=== PATIENT | male | born 1955 | race Caucasian/White ===

== ENCOUNTER 2019-04-25 11:52 | Emergency (ER) | payer MEDICARE, OTHER ==
[~2019-04-25] VITALS: Ht 170.2 cm; Wt 75.2 kg
[2019-04-25] MEDS ORDERED: ADACEL/BOOSTRIX VACCINE (DIPHTH/PERTUSS/ACELL/TETANUS)0.5ML SYR (90715) IM ONE (12:15)
[2019-04-25] MEDS ORDERED: LOSA100T50 PO (12:17)
[2019-04-25] MEDS ORDERED: B-122500 PO (12:17)
[2019-04-25] MEDS ORDERED: ECOT81TA5 PO (12:17)
[2019-04-25] MEDS ORDERED: LEVO-96 PO (12:17)
[2019-04-25] MEDS ORDERED: SIMV20TA2 PO (12:17)
[2019-04-25 12:25] LABS: BASO # 0.1 10^3/uL (0.0-0.2); BASO % 0.6 % (0.0-1.0); EOS # 0.1 10^3/uL (0.0-0.50); EOS % 0.6 % (0.0-3.0); LYMPH # 1.5 10^3/uL (1.5-4.5); LYMPH % 11.9 % (24.0-44.0); MEAN CORPUSCULAR HEMOGLOBIN 32.8 pg (27.0-33.0); MEAN CORPUSCULAR HGB CONC 34.1 g/dl (32.0-36.5); MEAN CORPUSCULAR VOLUME 96.3 fl (80.0-96.0); MONO # 0.7 10^3/uL (0.0-0.8); MONO % 5.2 % (0.0-5.0); NEUTROPHILS # 10.3 10^3/uL (1.8-7.7); NEUTROPHILS % 81.2 % (36.0-66.0); PLATELET COUNT, AUTOMATED 163 10^3/uL (150-450); RED BLOOD COUNT 4.57 10^6/uL (4.30-6.10); WHITE BLOOD COUNT 12.6 10^3/uL (4.0-10.0)
--- NOTE | 2019-04-25 12:35 | REP ---
CT Head without contrast HISTORY: Trauma COMPARISON: 04/11/2014 A punctate hemorrhagic contusion is present in the right parietal lobe. There is no infarct, mass or midline shift. The ventricular system is normal in appearance. There is no extra cerebral collection. A small amount of subarachnoid hemorrhage is present. There is no fracture. The visualized sinuses are clear. Punctate radiopaque densities are present in the subcutaneous tissue overlying the frontal bones, nasal bones and right maxillary sinus. Soft tissue swelling is present over the right maxillary sinus. IMPRESSION: 1. Punctate right parietal lobe hemorrhagic contusion. 2. Small amount of subarachnoid hemorrhage. Results were discussed with at 12:25 p.m. 04/25/2019 Electronically Signed by Mike Hagen MD 04/25/2019 12:27 P
--- NOTE | 2019-04-25 12:42 | REP ---
CT cervical spine without contrast HISTORY: Trauma COMPARISON: None There is no acute fracture or subluxation. Disc bulges are present at the C3-4 and C4-5 levels. Disc bulges with associated osteophyte formation are present at the C5-6 and C6-7 levels. There is minimal narrowing of the spinal canal. Uncinate process and/or facet hypertrophy are present at the C2-3 through C7-T1 levels. These findings produce minimal to severe narrowing of the neural foramina. The C4-5 through C6-7 intervertebral discs are decreased in height consistent with disc degeneration. IMPRESSION: 1. There is no acute fracture or subluxation. 2. There is cervical spondylosis at the C2-3 through C7-T1 levels. Electronically Signed by Mike Hagen MD 04/25/2019 12:33 P
--- NOTE | 2019-04-25 12:57 | REP ---
RIGHT KNEE, FIVE VIEWS: Five views of the right knee performed. There is on acute fracture or dislocation. There is mild medial joint space narrowing. There is superior patellar spurring. There is a small joint effusion. IMPRESSION: Mild degenerative changes. Small joint effusion. No fracture. Electronically Signed by Yusuf Burrell MD 04/26/2019 09:02 A
[2019-04-25 13:00] LABS: BLOOD UREA NITROGEN 15 MG/DL (7-18); CALCIUM LEVEL 9.1 MG/DL (8.8-10.2); CARBON DIOXIDE LEVEL 28 MEQ/L (21-32); CHLORIDE LEVEL 107 MEQ/L (98-107); CREATININE FOR GFR 0.98 MG/DL (0.70-1.30); GLOMERULAR FILTRATION RATE > 60.0 (>49); GLUCOSE, FASTING 119 MG/DL (70-100); POTASSIUM SERUM 3.8 MEQ/L (3.5-5.1); SODIUM LEVEL 139 MEQ/L (136-145)
--- NOTE | 2019-04-25 13:01 | REP ---
MAXILLOFACIAL CT WITHOUT CONTRAST: HISTORY: Trauma. COMPARISON: 03/16/2016. The sinuses are clear. The osteomeatal units are patent. The middle and inferior nasal turbinates are partially paradoxical. There is mild deviation of the nasal septum to the right. A spur is present arising from the right side of the nasal septum. The spur abuts the right inferior nasal turbinate. The cribriform plate, medial goode of the orbits, and optic canals are intact. There is a fracture of the maxillary spine. The carotid canals form a segment of the posterolateral goode of the sphenoid sinus. Soft tissue swelling is present overlying the right orbit, maxillary sinus, anterior maxilla, and mandibular symphysis. Multiple radiopaque foreign bodies are present in the soft tissue overlying the maxillary sinuses, anterior maxilla, mandibular symphysis and the right orbit. IMPRESSION: 1. There is no acute or chronic sinusitis. 2. There is a fracture of the maxillary spine. 3. There are multiple radiopaque foreign bodies in the soft tissue overlying the facial bones. Electronically Signed by Mike Hagen MD 04/25/2019 01:08 P
--- NOTE | 2019-04-25 13:09 | REP ---
Chest one-view HISTORY: Trauma Comparison: None The lungs are clear. The heart is normal in size. The pulmonary vasculature is normal in appearance. A hiatal hernia is present. Impression: No acute disease. Electronically Signed by Mike Hagen MD 04/25/2019 01:00 P
[2019-04-25 13:28] VITALS: BP 163/92
--- NOTE | 2019-04-25 20:09 | ECGEPIP ---
[facility] - ED Test Date: 2019-04-25 Pat Name: RAFFAELE RASHEED Department: Room: - Gender: Male [employer]: [facility] : 1955 Requested By: Charito Hernandez Order Number: [id number] Reading MD: Charito Hernandez Measurements Intervals [place] Rate: 80 P: 46 NE: 167 QRS: QRSD: 87 T: 28 QT: 351 QTc: 407 Interpretive Statements SINUS RHYTHM NO PRIOR FOR COMPARISON Electronically Signed on 04-25-2019 20:09:13 EDT by Charito Hernandez
== END 2019-04-25 14:34 | disposition short-term general hospital (02) ==
LOC: M ED 11:52 → EDBD 11:52 → M ED 14:34
DX: S02.401A Maxillary fracture, unspecified side, initial encounter for closed fracture (principal); S06.330A Contusion and laceration of cerebrum, unspecified, without loss of consciousness, initial encounter; S50.812A Abrasion of left forearm, initial encounter; S80.212A Abrasion, left knee, initial encounter; V18.9XXA Unspecified pedal cyclist injured in noncollision transport accident in traffic accident, initial encounter; Y92.410 Unspecified street and highway as the place of occurrence of the external cause; M25.461 Effusion, right knee; I10 Essential (primary) hypertension; E78.9 Disorder of lipoprotein metabolism, unspecified; Z79.899 Other long term (current) drug therapy; Z79.890 Hormone replacement therapy; Z79.82 Long term (current) use of aspirin; Z87.891 Personal history of nicotine dependence

== ENCOUNTER 2021-12-17 23:08 | Emergency (ER) | payer MEDICARE, OTHER ==
[~2021-12-17] VITALS: Ht 170.2 cm; Wt 82.5 kg
[~2021-12-17 23:08] MED LIST: B-122500 PO; ECOT81TA5 PO; LEVO-96 PO; LOSA100T45 PO; SIMV20TA22 PO
[2021-12-17] MEDS ORDERED: ASPI81CH48 PO (23:17)
[2021-12-18] MEDS ORDERED: NS 500 ML IV ONE (00:20)
[2021-12-18 00:21] LABS: BASO # 0.1 10^3/uL (0.0-0.2); BASO % 1.2 % (0.0-1.0); EOS # 0.1 10^3/uL (0.0-0.5); EOS % 1.3 % (0.0-3.0); HEMATOCRIT 44.3 % (42.0-52.0); HEMOGLOBIN 15.4 g/dl (13.5-17.5); LYMPH # 2.3 10^3/uL (1.5-5.0); LYMPH % 27.4 % (24.0-44.0); MEAN CORPUSCULAR HEMOGLOBIN 32.4 pg (27.0-33.0); MEAN CORPUSCULAR HGB CONC 34.8 g/dl (32.0-36.5); MEAN CORPUSCULAR VOLUME 93.1 fl (80.0-96.0); MONO # 0.7 10^3/uL (0.0-0.8); MONO % 7.9 % (2.0-8.0); NEUTROPHILS # 5.1 10^3/uL (1.5-8.5); NEUTROPHILS % 61.8 % (36.0-66.0); PLATELET COUNT, AUTOMATED 187 10^3/uL (150-450); RED BLOOD COUNT 4.76 10^6/uL (4.30-6.10); WHITE BLOOD COUNT 8.3 10^3/uL (4.0-10.0)
[2021-12-18 00:52] LABS: BLOOD UREA NITROGEN 14 MG/DL (7-18); CARBON DIOXIDE LEVEL 27 MEQ/L (21-32); CHLORIDE LEVEL 108 MEQ/L (98-107); FREE THYROXINE INDEX 3.4 % (1.4-3.8); GLOMERULAR FILTRATION RATE > 60.0 (>49); GLUCOSE, FASTING 125 MG/DL (70-100); POTASSIUM SERUM 3.7 MEQ/L (3.5-5.1); SODIUM LEVEL 141 MEQ/L (136-145); T UPTAKE 35 % (33-40); THYROXINE (T4) 9.8 UG/DL (4.5-12.0)
[2021-12-18 02:14] LABS: CK-MB VALUE MASS 1.4 NG/ML (<3.6); MB/CK RELATIVE INDEX 1.41 (< OR =4)
[2021-12-18 02:42] VITALS: BP 163/85
== END 2021-12-18 02:45 | disposition home or self-care (01) ==
LOC: M ED 23:08
DX: I49.1 Atrial premature depolarization (principal); I10 Essential (primary) hypertension; E78.5 Hyperlipidemia, unspecified; Z87.891 Personal history of nicotine dependence; Z79.899 Other long term (current) drug therapy

== ENCOUNTER 2024-06-13 10:15 | Day surgery (SDC) | payer MEDICARE, OTHER ==
[~2024-06-13] VITALS: Ht 170.2 cm; Wt 76.5 kg
[~2024-06-13 10:15] MED LIST changes: +ASPI81CH48 PO; +B-12100010 PO; +CARD120C3 PO; -LOSA100T45 PO; +LOSA100T46 PO; +MIDAZOLAM INJ 2MG/2ML VIAL As Ordered ONE; +PHENYLEPHRINE 10% OPHTH SOL 5ML OD PRN; +SYNT150T PO; +fentaNYL 100 MCG/2 ML INJECTION As Ordered ONE
[2024-06-13] MEDS ORDERED: LIDOCAINE 1% SDV 5ML VIAL SC PRN (10:25)
[2024-06-13] MEDS: PHENYLEPHRINE 2.5% OPHTH SOL 2ML OD SCH (11:18)
[2024-06-13] MEDS: ATROPINE SULFATE 1% OPHTH SOLN 2ML BTL OD SCH (11:18)
[2024-06-13] MEDS: LIDOCAINE 3.5 % 1ML OPHTH TOPICAL GEL OU ONE (11:18)
[2024-06-13] MEDS: OFLOXACIN 0.3 % (OCUFLOX) OPTH SOL 5ML OD ONE (11:18)
[2024-06-13] MEDS: TROPICAMIDE 1% OPHTH SOLN 15ML OD SCH (11:19)
[2024-06-13] MEDS: CEFUROXIME 1MG/0.1ML INTRACAMERAL INJ As Ordered ONE (11:47)
[2024-06-13] MEDS: BSS IRRIG/VANCO(10MG)/TOBRA(5MG)/EPINEPH(1:1000-0.5CC)500ML BAG-ORONLY As Ordered ONE (11:47)
[2024-06-13] MEDS: LIDOCAINE 1% SDV 5ML VIAL As Ordered ONE (11:47)
[2024-06-13 12:02] VITALS: BP 128/83; TEMP 97.6; O2SAT 95
[2024-06-13] MEDS ORDERED: DUOVISC (0.50ML VISCOAT/0.85ML PROVISC) OPHTH KIT As Ordered ONE (12:07)
== END 2024-06-13 12:22 | disposition home or self-care (01) ==
LOC: M SDC 10:15
PROVIDERS: ATTEND Ophthalmology
DX: H25.11 Age-related nuclear cataract, right eye (principal); I10 Essential (primary) hypertension; I47.10 Supraventricular tachycardia, unspecified; E03.9 Hypothyroidism, unspecified; E78.00 Pure hypercholesterolemia, unspecified; G47.30 Sleep apnea, unspecified; Z79.899 Other long term (current) drug therapy; Z79.890 Hormone replacement therapy
CPT/HCPCS: 66984; 92015; J0697; J2250; J3010; V2788

== ENCOUNTER → 2024-08-24 | Outpatient (CLI) | payer MEDICARE, OTHER ==
[~2024-08-24] MED LIST changes: -MIDAZOLAM INJ 2MG/2ML VIAL As Ordered ONE; -PHENYLEPHRINE 10% OPHTH SOL 5ML OD PRN; -fentaNYL 100 MCG/2 ML INJECTION As Ordered ONE
== END ==
LOC: M RAD 06:54
PROVIDERS: ATTEND Physician Assistant
DX: B18.2 Chronic viral hepatitis C (principal); K80.20 Calculus of gallbladder without cholecystitis without obstruction

== ENCOUNTER 2024-11-07 11:17 | Day surgery (SDC) | payer MEDICARE, OTHER ==
[~2024-11-07] VITALS: Ht 170.2 cm; Wt 76.5 kg
[2024-11-07 13:29] VITALS: TEMP 97.5
[2024-11-07 13:46] VITALS: BP 110/73; O2SAT 93
== END 2024-11-07 13:51 | disposition home or self-care (01) ==
LOC: M OPP 11:17
PROVIDERS: ATTEND Surgery
DX: Z12.11 Encounter for screening for malignant neoplasm of colon (principal); K64.1 Second degree hemorrhoids; K44.9 Diaphragmatic hernia without obstruction or gangrene; K29.50 Unspecified chronic gastritis without bleeding; I10 Essential (primary) hypertension; E78.5 Hyperlipidemia, unspecified; E03.9 Hypothyroidism, unspecified; K76.0 Fatty (change of) liver, not elsewhere classified; K21.9 Gastro-esophageal reflux disease without esophagitis; G47.30 Sleep apnea, unspecified; G51.0 Bell's palsy; Z86.73 Personal history of transient ischemic attack (TIA), and cerebral infarction without residual deficits; Z79.890 Hormone replacement therapy; Z79.899 Other long term (current) drug therapy
CPT/HCPCS: 43239; 88305; G0121

== ENCOUNTER 2024-12-05 10:26 | Day surgery (SDC) | payer OTHER, MEDICARE ==
[~2024-12-05] VITALS: Ht 170.2 cm; Wt 80.1 kg
[~2024-12-05 10:26] MED LIST changes: +D-3-50003 PO; +PHENYLEPHRINE 10% OPHTH SOL 5ML OS PRN
[2024-12-05] MEDS ORDERED: MIDAZOLAM INJ 2MG/2ML VIAL As Ordered ONE (11:03)
[2024-12-05] MEDS ORDERED: fentaNYL 100 MCG/2 ML INJECTION As Ordered ONE (11:03)
[2024-12-05] MEDS: TROPICAMIDE 1% OPHTH SOLN 15ML OS SCH (11:33)
[2024-12-05] MEDS: CYCLOPENTOLATE 1% OPHTH SOLN 2ML BTL OS SCH (11:33)
[2024-12-05] MEDS: LIDOCAINE 3.5 % 1ML OPHTH TOPICAL GEL OU ONE (11:33)
[2024-12-05] MEDS: PHENYLEPHRINE 2.5% OPHTH SOL 2ML OS SCH (11:33)
[2024-12-05] MEDS: OFLOXACIN 0.3 % (OCUFLOX) OPTH SOL 5ML OS ONE (11:33)
[2024-12-05] MEDS ORDERED: ONDANSETRON 4MG 2ML VIAL As Ordered ONE (13:29)
[2024-12-05] MEDS: LIDOCAINE 1% SDV 5ML VIAL As Ordered ONE (13:36)
[2024-12-05] MEDS: BSS IRRIG/VANCO(10MG)/TOBRA(5MG)/EPINEPH(1:1000-0.5CC)500ML BAG-ORONLY As Ordered ONE (13:36)
[2024-12-05] MEDS: CEFUROXIME 1MG/0.1ML INTRACAMERAL INJ As Ordered ONE (13:36)
[2024-12-05 13:55] VITALS: BP 159/83; TEMP 97.2; O2SAT 96
== END 2024-12-05 14:08 | disposition home or self-care (01) ==
LOC: M SDC 10:26
PROVIDERS: ATTEND Ophthalmology
DX: H25.12 Age-related nuclear cataract, left eye (principal); E03.9 Hypothyroidism, unspecified; I10 Essential (primary) hypertension; E78.00 Pure hypercholesterolemia, unspecified; K76.0 Fatty (change of) liver, not elsewhere classified; N40.0 Benign prostatic hyperplasia without lower urinary tract symptoms; G47.30 Sleep apnea, unspecified; Z79.890 Hormone replacement therapy; Z79.899 Other long term (current) drug therapy; Z87.19 Personal history of other diseases of the digestive system; Z86.73 Personal history of transient ischemic attack (TIA), and cerebral infarction without residual deficits
CPT/HCPCS: 66984; 92015; J0697; J2250; J2405; J3010; V2788